=== PATIENT | female | born 1955 | race Two or more races ===

== ENCOUNTER 2017-10-12 09:20 | Emergency (ER) | payer MEDICARE, MEDICAID ==
[~2017-10-12] VITALS: Ht 170.2 cm; Wt 118.4 kg
[~2017-10-12 09:20] MED LIST: ACET100D65 PO; ALLO100T PO; BP MEDS; DIVA500T2 PO; DIVA500T7 PO; DOCU100C36 PO; FAMO10TA94 PO; METO-356 PO; RANI150T8 PO; RISP4TAB4 PO; THIO5CAP2 PO; TOPI25TA PO; TRAM50TA2 PO; VIT1TABL46 PO
[2017-10-12 10:00] LABS: BASOPHILS # (AUTO) 0.1 /CMM (0.0-0.2); BASOPHILS % (AUTO) 0.8 % (0.0-2.0); EOSINOPHILS # (AUTO) 0.2 /CMM (0.0-0.7); EOSINOPHILS % (AUTO) 3.2 % (0.0-6.0); HEMATOCRIT 33 % (33-45); HEMOGLOBIN 11.1 g/dL (11.5-14.8); LYMPHOCYTES # (AUTO) 1.3 /CMM (0.8-4.8); MEAN CORPUSCULAR HEMOGLOBIN 26 PG (26.0-33.0); MEAN CORPUSCULAR HGB CONC 33 g/dl (31.0-36.0); MEAN CORPUSCULAR VOLUME 77 fL (82-100); MONOCYTES # (AUTO) 0.7 /CMM (0.1-1.30); MONOCYTES % (AUTO) 10.7 % (2.0-12.0); NEUTROPHILS # (AUTO) 4.4 /CMM (1.8-8.9); NEUTROPHILS % (AUTO) 66.3 % (43.0-81.0); PLATELET COUNT (AUTO) 293 /CMM (150-450); RDW COEFFICIENT OF VARIATION 14.1 (11.5-15.0); RED BLOOD CELL COUNT(AUTO) 4.32 MIL/uL (4.0-5.2); WHITE BLOOD COUNT (AUTO) 6.6 K/uL (4.3-11.0)
[2017-10-12 10:08] LABS: CALCIUM, SERUM 8.9 mg/dL (8.5-10.1); CARBON DIOXIDE 28 mmol/L (21-32); CHLORIDE 105 mmol/L (98-107); CREATININE 1.2 mg/dL (0.6-1.3); GLUCOSE 102 mg/dL (74-106); POTASSIUM 3.7 mmol/L (3.5-5.1); SODIUM SERUM 139 mmol/L (136-145); UREA NITROGEN, BLOOD 37 mg/dL (7-18)
--- NOTE | 2017-10-12 10:10 | NUR ---
PT BBS WITH C/O ON/OFF SOB FOR 2-3 MONTHS, NO CHEST PAIN. PT WAS SENT BY ANNIKA GOLD FOR FURTHER EVAL. LUNGS CLEAR IN ALL QUADRANTS DURING AUSCULATION. POOJA FLORES MD AT BEDSIDE FOR EVAL.
[2017-10-12 10:16] LABS: TROPONIN I < 0.017 ng/mL (0.00-0.056)
[2017-10-12 10:20] LABS: ALANINE AMINOTRANSFERASE 33 U/L (12-78); ALBUMIN 2.8 g/dL (3.4-5.0); ALKALINE PHOSPHATASE 151 U/L (46-116); ASPARTATE AMINOTRANSFERASE 30 U/L (15-37); B-TYPE NATRIURETIC PEPTIDE 200 PG/ML (0-125); BILIRUBIN,DIRECT 0.1 mg/dL (0.0-0.2); BILIRUBIN,TOTAL 0.3 mg/dL (0.2-1.0); TOTAL PROTEIN, SERUM 7.8 g/dL (6.4-8.2)
--- NOTE | 2017-10-12 11:30 | NUR ---
Patient discharged to home in stable condition. Written and verbal after care instructions given. Patient verbalizes understanding of instruction.
[2017-10-12 11:31] VITALS: BP 139/72
== END 2017-10-12 11:32 | disposition home or self-care (01) ==
LOC: ER 09:26
DX: I13.0 Hypertensive heart and chronic kidney disease with heart failure and stage 1 through stage 4 chronic kidney disease, or unspecified chronic kidney disease (principal); I50.9 Heart failure, unspecified; N18.9 Chronic kidney disease, unspecified; E11.22 Type 2 diabetes mellitus with diabetic chronic kidney disease; Z88.0 Allergy status to penicillin; Z88.6 Allergy status to analgesic agent
CPT/HCPCS: 36415; 71045; 80048; 80076; 83880; 84484; 85025; 93005; 99285; A4606; Z7610

== ENCOUNTER 2018-12-26 13:55 | Inpatient (IN) | payer MEDICARE, MEDICAID ==
[~2018-12-26] VITALS: Ht 162.6 cm; Wt 144.9 kg
[~2018-12-26 13:55] MED LIST changes: +DIVA-78 PO; -DIVA500T7 PO
--- NOTE | 2018-12-26 14:10 | NUR ---
PATIENT ARRIVED TO UNIT BY WHEELCHAIR, ACCOMPANIED BY BROTHER. SENT BY PMD, ANGELA LOWER EXTREMITIES EDEMA, FLUID RETENSION, CHF, DM. DENIES ANY PAIN OR DISCOMFORT.
--- NOTE | 2018-12-26 14:23 | NUR ---
IV STARTED ON RIGHT HAND. BLOOD DRAWN AND SENT TO LAB
[2018-12-26 14:26] LABS: BASOPHILS # (AUTO) 0.1 /CMM (0.0-0.2); EOSINOPHILS % (AUTO) 0.6 % (0.0-6.0); HEMATOCRIT 32 % (33-45); HEMOGLOBIN 10.6 g/dL (11.5-14.8); LYMPHOCYTES # (AUTO) 1.1 /CMM (0.8-4.8); MEAN CORPUSCULAR HGB CONC 34 g/dl (31.0-36.0); MEAN CORPUSCULAR VOLUME 76 fL (82-100); MONOCYTES # (AUTO) 1.1 /CMM (0.1-1.30); NEUTROPHILS # (AUTO) 7.4 /CMM (1.8-8.9); NEUTROPHILS % (AUTO) 76.4 % (43.0-81.0); PLATELET COUNT (AUTO) 222 /CMM (150-450); RED BLOOD CELL COUNT(AUTO) 4.19 MIL/uL (4.0-5.2); WHITE BLOOD COUNT (AUTO) 9.7 K/uL (4.3-11.0)
[2018-12-26] MEDS ORDERED: LURA40TA PO (14:44)
[2018-12-26] MEDS ORDERED: METO25TA6 PO (14:44)
[2018-12-26] MEDS ORDERED: FURO-144 PO (14:44)
[2018-12-26] MEDS ORDERED: POTA10TA11 PO (14:44)
[2018-12-26] MEDS ORDERED: METO5TAB7 PO (14:44)
[2018-12-26] MEDS ORDERED: METF-440 PO (14:44)
[2018-12-26] MEDS ORDERED: COLC0.6T67 PO (14:44)
[2018-12-26 14:45] LABS: ALBUMIN 2.6 g/dL (3.4-5.0); BILIRUBIN,DIRECT 0.5 mg/dL (0.0-0.2); CALCIUM, SERUM 8.9 mg/dL (8.5-10.1); CREATININE 2.8 mg/dL (0.6-1.3)
[2018-12-26 14:47] LABS: POTASSIUM 2.7 mmol/L (3.5-5.1)
--- NOTE | 2018-12-26 16:25 | NUR ---
Note andresone in ED - 12/26/18 at 1835 by LISA PATIENT TRANSFERRED TO [facility] BY TENISHA VIA [facility] PROTOCOL. RECEIVING NURSE AT BEDSIDE. PATIENT CALM AND RELAXED. NO ACUTE DISTRESS NOTED.
--- NOTE | 2018-12-26 16:36 | NUR ---
Maegan frausto in [facility] - 12/26/18 at 1703 by LORIN BED [id number]
--- NOTE | 2018-12-26 17:40 | NUR ---
REPORT GIVEN TO IFEANYI LU FOR FLORENTINO
[2018-12-26] MEDS ORDERED: DEXTROSE 50%-WATER 50 ML DISP.SYRIN IV PRN (18:00)
[2018-12-26] MEDS ORDERED: POTASSIUM CHLORIDE 20 MEQ TAB.PRT.SR PO ONE ×2 (18:00→18:29)
--- NOTE | 2018-12-26 18:25 | NUR ---
PATIENT TRANSFERRED TO [facility] BY MADELIN VIA [facility] PROTOCOL. RECEIVING NURSE AT BEDSIDE. PATIENT CALM AND RELAXED. NO ACUTE DISTRESS NOTED
[2018-12-26] MEDS ORDERED: METFORMIN 500 MG TABLET PO SCH (18:30)
[2018-12-26] MEDS ORDERED: FUROSEMIDE 40 MG TABLET PO SCH (18:30)
[2018-12-26] MEDS: POTASSIUM CHLORIDE 10 MEQ TABLET.SA PO SCH (18:52)
[2018-12-26] MEDS: METOPROLOL TARTRATE 25 MG TABLET PO SCH (18:52)
[2018-12-26] MEDS: COLCHICINE 0.6 MG TABLET PO SCH (18:52)
--- NOTE | 2018-12-26 19:15 | NUR ---
TELE/RN NOTES RECEIVED PT IN BED FOR ADMISSION. A/OX4, ON ROOM AIR, NO SOB NOTED. SR ON TELE. NO C/O PAIN AT THIS TIME. VS TAKEN AND PHYSICAL ASSESSMENT DONE. BED BATH GIVEN. WITH INTACT AND PATENT RHAND G20 HEPLOCK, IVF D5NS +40MEQS KCL STARTED PER ORDER. ORIENTED TO ROOM AND USE OF CALL LIGHT. SAFETY MEASURES IN PLACED. CALL LIGHT WITHIN EASY REACH. WILL CONT TO MONITOR
--- NOTE | 2018-12-26 19:15 | NUR ---
RN NOTES RECEIVED REPORT FROM ER NURSE. PT WAS BROUGHT TO UNIT AT 1830. PT WAS MADE COMFORTABLE AND FOOD WAS BROUGHT TO PT. ENDORSED CONTINUITY OF CARE TO SUPERVISOR NUCLEAR MEDICINE RN.
[2018-12-26 20:00] VITALS: BP 139/60
[2018-12-26] MEDS: Potassium Chloride 40 MEQ in IV D5/ 0.9% NACL 1,000 ML IV PRN (20:10)
[2018-12-26] MEDS: BLOOD SUGAR DIAGNOSTIC 1 EACH STRIP IN SCH (21:21)
[2018-12-26] MEDS: INSULIN REGULAR, HUMAN 100 UNIT/ML 3 ML VIAL SQ PRN (21:22)
[2018-12-27] VITALS: BP 134/46
[2018-12-27 04:00] VITALS: BP 110/49
[2018-12-27 06:53] LABS: BASOPHILS # (AUTO) 0.1 /CMM (0.0-0.2); BASOPHILS % (AUTO) 1.3 % (0.0-2.0); HEMATOCRIT 31 % (33-45); HEMOGLOBIN 10.2 g/dL (11.5-14.8); LYMPHOCYTES # (AUTO) 1.8 /CMM (0.8-4.8); LYMPHOCYTES % (AUTO) 20.1 % (20.0-44.0); MEAN CORPUSCULAR HGB CONC 33 g/dl (31.0-36.0); MEAN CORPUSCULAR VOLUME 76 fL (82-100); MONOCYTES # (AUTO) 1.3 /CMM (0.1-1.30); MONOCYTES % (AUTO) 14.5 % (2.0-12.0); NEUTROPHILS # (AUTO) 5.3 /CMM (1.8-8.9); NEUTROPHILS % (AUTO) 60.1 % (43.0-81.0); PLATELET COUNT (AUTO) 178 /CMM (150-450); RED BLOOD CELL COUNT(AUTO) 4.09 MIL/uL (4.0-5.2); WHITE BLOOD COUNT (AUTO) 8.8 K/uL (4.3-11.0)
--- NOTE | 2018-12-27 06:55 | NUR ---
RN NOTES PT IN STABLE CONDITION. NO ACUTE CHANGES THROUGHOUT THE SHIFT. ALL NEEDS ANTICIPATED. SAFETY MEASURES OBSERVED AT ALL TIMES. ENDORSED TO AM SHIFT RN FOR FLORENTINO
[2018-12-27 06:57] LABS: POTASSIUM 2.9 mmol/L (3.5-5.1)
[2018-12-27 06:58] LABS: CALCIUM, SERUM 8.9 mg/dL (8.5-10.1); CREATININE 2.2 mg/dL (0.6-1.3)
[2018-12-27 08:00] VITALS: BP 112/41
[2018-12-27] MEDS: BLOOD SUGAR DIAGNOSTIC 1 EACH STRIP IN SCH ×4 (08:26→21:22)
[2018-12-27] MEDS: INSULIN REGULAR, HUMAN 100 UNIT/ML 3 ML VIAL SQ PRN ×2 (08:33→21:22)
[2018-12-27] MEDS: METOPROLOL TARTRATE 25 MG TABLET PO SCH ×2 (08:36→16:58)
[2018-12-27] MEDS: Potassium Chloride 40 MEQ in IV D5/ 0.9% NACL 1,000 ML IV PRN (08:36)
[2018-12-27] MEDS: POTASSIUM CHLORIDE 10 MEQ TABLET.SA PO SCH (08:36)
[2018-12-27] MEDS: COLCHICINE 0.6 MG TABLET PO SCH ×3 (08:37→16:59)
[2018-12-27] MEDS ORDERED: METOLAZONE 2.5 MG TABLET PO SCH (09:00)
--- NOTE | 2018-12-27 09:13 | NUR ---
WOUND CARE CONSULT: PT PRESENTS WITH MULTIPLE SKIN ISSUES INCLUDING RASH TO ABDOMINAL/GROIN FOLDS AND PERINEAL, GLUTEAL CREASE AREAS, INCONTINENCE ASSOCIATED SKIN IRRITATION TO LEFT POSTERIOR THIGH AND FLUCTUANT WOUND TO LEFT HEEL WITH REDNESS TO BILATERAL LOWER EXTREMITIES AND THICK CALLUSES TO FEET, ALL PRESENT ON ADMISSION. RECOMMENDATIONS MADE FOR SKIN PROTECTION AND CARE. DISCUSSED WITH NURSING STAFF. RECOMMEND DPM CONSULT. RECOMMEND ISOFLEX LOW AIRLOSS BED. WILL SEE PRN. DEFER TO DPM FOR LOWER EXTREMITIES. MD IN AGREEMENT WITH PLAN OF CARE. Addendum: 12/27/18 at 0916 by LORI MOYER WNDNU Amended: Links added.
[2018-12-27] MEDS ORDERED: Z GUARD REMEDY 2 OZ OINT TP PRN (09:30)
[2018-12-27] MEDS: Z GUARD REMEDY 2 OZ OINT TP SCH (09:38)
[2018-12-27 11:59] LABS: THYROID STIMULATING HORMONE 0.665 uIU/mL (0.358-3.74)
[2018-12-27 12:00] VITALS: BP 118/48
[2018-12-27 12:09] LABS: MAGNESIUM 1.9 mg/dL (1.8-2.4); PHOSPHORUS 3.4 mg/dL (2.5-4.9)
[2018-12-27] MEDS: CLOTRIMAZOLE 1% 15 GM TUBE TP SCH ×2 (12:58→16:59)
[2018-12-27 16:00] VITALS: BP 112/60
--- NOTE | 2018-12-27 19:30 | NUR ---
RN NOTES RECEIVED PATIENT IN BED AWAKE A/OX4, ON ROOM AIR, BREATHING EVEN AND UNLABORED, NO SOB/ACUTE DISTRESS NOTED AT THIS TIME, RIGHT HAND IV ACCESS G20 INFUSING IVF D5NS +40MEQS KCL AT THIS TIME, AND PATIENT TOLERATED WELL, CALL LIGHT W/I REACH, SAFETY MEASURES IN PLACED AT ALL TIMES, WILL CONT TO MONITOR CLOSELY. Addendum: 12/28/18 at 0640 by SPENCER CASTREJON RN PATIENT WITH RIGHT HAND IV ACCESS PATENT AND INTACT S/L, NO IVF AT THIS TIME.
[2018-12-27 20:00] VITALS: BP 122/64
[2018-12-27] MEDS: CIPROFLOXACIN HCL 250 MG TABLET PO SCH (20:52)
[2018-12-27] MEDS: DOXYCYCLINE HYCLATE (100 MG) 100 MG TABLET PO SCH (20:52)
[2018-12-27] MEDS: ARIPIPRAZOLE 5 MG TABLET PO SCH (22:07)
[2018-12-28 04:00] VITALS: BP 120/78
--- NOTE | 2018-12-28 06:35 | NUR ---
RN NOTES PATIENT IN BED AWAKE AT THIS TIME WATCHING TV, ON ROOM AIR, BREATHING EVEN AND UNLABORED, NO SOB/ACUTE DISTRESS NOTED AT THIS TIME, RIGHT HAND IV ACCESS S/L PATENT AND INTACT, NO SIGNIFICANT CHANGE IN CONDITION DURING THE NIGHT, CALL LIGHT W/I REACH, SAFETY MEASURES IN PLACED AT ALL TIMES, WILL ENDORSE CONTINUITY OF CARE TO ONCOMING NURSE.
[2018-12-28 07:11] LABS: ALBUMIN 2.3 g/dL (3.4-5.0); BILIRUBIN,TOTAL 1.2 mg/dL (0.2-1.0); CALCIUM, SERUM 9.1 mg/dL (8.5-10.1); CREATININE 1.8 mg/dL (0.6-1.3); MAGNESIUM 1.8 mg/dL (1.8-2.4); PHOSPHORUS 2.8 mg/dL (2.5-4.9); POTASSIUM 3.5 mmol/L (3.5-5.1); TOTAL PROTEIN, SERUM 7.5 g/dL (6.4-8.2)
[2018-12-28 07:21] LABS: BASOPHILS # (AUTO) 0.1 /CMM (0.0-0.2); BASOPHILS % (AUTO) 0.8 % (0.0-2.0); EOSINOPHILS % (AUTO) 6.1 % (0.0-6.0); HEMATOCRIT 33 % (33-45); HEMOGLOBIN 10.8 g/dL (11.5-14.8); LYMPHOCYTES # (AUTO) 1.3 /CMM (0.8-4.8); MEAN CORPUSCULAR HGB CONC 33 g/dl (31.0-36.0); MEAN CORPUSCULAR VOLUME 77 fL (82-100); MONOCYTES # (AUTO) 1.4 /CMM (0.1-1.30); MONOCYTES % (AUTO) 16.2 % (2.0-12.0); NEUTROPHILS # (AUTO) 5.3 /CMM (1.8-8.9); NEUTROPHILS % (AUTO) 61.9 % (43.0-81.0); PLATELET COUNT (AUTO) 169 /CMM (150-450); RED BLOOD CELL COUNT(AUTO) 4.27 MIL/uL (4.0-5.2); WHITE BLOOD COUNT (AUTO) 8.6 K/uL (4.3-11.0)
[2018-12-28] MEDS: BLOOD SUGAR DIAGNOSTIC 1 EACH STRIP IN SCH ×4 (07:30→21:31)
--- NOTE | 2018-12-28 07:35 | NUR ---
MS RN RECEIVED ON BED, AWAKE,ALERT,ORIENTED X4,NOT IN ANY FORM OF DISTRESS, RESPIRATIONS EVEN AND UNLABORED,NO SOB NOTED, LUNGS ARE DIMINISHED,ABDOMEN SOFT,POSITIVE BOWEL SOUNDS,DENIES PAIN AT THIS TIME, WILL MONITOR PATIENT'S CONDITION.
[2018-12-28 08:00] VITALS: BP 130/48
[2018-12-28 08:13] LABS: ABG BASE EXCESS 6.3 mmol/L; ABG PCO2 38.2 mmHg (35.0-45.0); ABG PH 7.508 (7.350-7.450); ABG PO2 70.5 mmHg (75.0-100.0); AaDO2 33.5 mmHg; MetHb 0.6 % (0.0-1.5); O2Hb 93.5 % (94.0-97.0); SITE, ABG Right Radial; VENT MODE, BG ROOM AIR
[2018-12-28] MEDS: CLOTRIMAZOLE 1% 15 GM TUBE TP SCH ×4 (09:00→18:29)
[2018-12-28] MEDS: Z GUARD REMEDY 2 OZ OINT TP SCH (09:00)
[2018-12-28] MEDS: UREA 10% -AHA 4% CREAM 57 GM TUBE TP SCH (09:00)
[2018-12-28] MEDS ORDERED: LATUDA 20 MG PO SCH (09:00)
[2018-12-28] MEDS: DAKINS QUARTER STRENGTH (0.125%) 480 ML BOTTLE TOP SCH (09:00)
--- NOTE | 2018-12-28 09:00 | NUR ---
MS LU BREAKFAST SERVED,DUE MEDS GIVEN,TOLERATED WELL.
[2018-12-28] MEDS: COLCHICINE 0.6 MG TABLET PO SCH ×3 (09:10→18:28)
[2018-12-28] MEDS: CIPROFLOXACIN HCL 250 MG TABLET PO SCH ×2 (09:10→21:31)
[2018-12-28] MEDS: DOXYCYCLINE HYCLATE (100 MG) 100 MG TABLET PO SCH ×2 (09:10→21:31)
[2018-12-28] MEDS: POTASSIUM CHLORIDE 10 MEQ TABLET.SA PO SCH (09:10)
[2018-12-28] MEDS: METOPROLOL TARTRATE 25 MG TABLET PO SCH ×2 (09:11→17:00)
[2018-12-28] MEDS: CADEXOMER IODINE 40 GM TUBE TP SCH (09:12)
[2018-12-28 12:00] VITALS: BP 130/58
--- NOTE | 2018-12-28 12:00 | NUR ---
ms rn eating lunch,no distress noted.
[2018-12-28] MEDS: INSULIN REGULAR, HUMAN 100 UNIT/ML 3 ML VIAL SQ PRN (12:53)
[2018-12-28 18:00] VITALS: BP_SYST 122; BP_SYST 130; BP_DIAS 47; BP_DIAS 74
[2018-12-28] MEDS: LACTOBACILLUS RHAMNOSUS GG 1 EACH CAP.SPRINK PO SCH (18:28)
--- NOTE | 2018-12-28 18:43 | NUR ---
ms rn on bed, , bs - 101 - no coverage given,all needs attended.
[2018-12-28 20:00] VITALS: BP 136/57
[2018-12-28] MEDS: ARIPIPRAZOLE 5 MG TABLET PO SCH (21:31)
[2018-12-29 04:00] VITALS: BP 134/58
--- NOTE | 2018-12-29 06:51 | NUR ---
MS RN NOTES AWAKE & RESPONSIVE. NOT IN ANY DISTRESS. NO SOB NOTED. DENIES ANY PAIN OR DISCOMFORT AT THIS TIME. WITH IV-HL PATENT & INTACT. MONITORED ACCORDINGLY. CALL LIGHT WITHIN REACH. BED IN LOWEST POSITION.. SR UP X 2 FOR SAFETY. WILL ENDORSE TO NEXT SHIFT.
--- NOTE | 2018-12-29 07:25 | NUR ---
MS RN NOTES PATIENT IN BED ALERT ORIENTED X 4. NO ACUTE DISTRESS NOTED. BREATHING UNLABORED. NO SOB NOTED. IV ACCESS PATENT AND INTACT, NO REDNESS OR SWELLING NOTED. SAFETY MEASURES IN PLACE. CALL LIGHT WITHIN REACH. WILL CONTINUE TO MONITOR ACCORDINGLY.
[2018-12-29 07:36] LABS: BASOPHILS # (AUTO) 0.1 /CMM (0.0-0.2); EOSINOPHILS % (AUTO) 7.6 % (0.0-6.0); HEMATOCRIT 34 % (33-45); HEMOGLOBIN 10.8 g/dL (11.5-14.8); LYMPHOCYTES # (AUTO) 1.6 /CMM (0.8-4.8); LYMPHOCYTES % (AUTO) 18.4 % (20.0-44.0); MEAN CORPUSCULAR HGB CONC 32 g/dl (31.0-36.0); MEAN CORPUSCULAR VOLUME 78 fL (82-100); MONOCYTES # (AUTO) 1.4 /CMM (0.1-1.30); MONOCYTES % (AUTO) 15.7 % (2.0-12.0); NEUTROPHILS % (AUTO) 57.3 % (43.0-81.0); PLATELET COUNT (AUTO) 140 /CMM (150-450); RED BLOOD CELL COUNT(AUTO) 4.33 MIL/uL (4.0-5.2); WHITE BLOOD COUNT (AUTO) 8.8 K/uL (4.3-11.0)
[2018-12-29 07:47] LABS: ALBUMIN 2.3 g/dL (3.4-5.0); BILIRUBIN,DIRECT 0.3 mg/dL (0.0-0.2); BILIRUBIN,TOTAL 1.1 mg/dL (0.2-1.0); TOTAL PROTEIN, SERUM 7.6 g/dL (6.4-8.2)
[2018-12-29 07:49] LABS: CALCIUM, SERUM 9.2 mg/dL (8.5-10.1); CREATININE 1.5 mg/dL (0.6-1.3); MAGNESIUM 1.8 mg/dL (1.8-2.4); POTASSIUM 3.6 mmol/L (3.5-5.1)
[2018-12-29 08:00] VITALS: BP 122/51
[2018-12-29] MEDS: BLOOD SUGAR DIAGNOSTIC 1 EACH STRIP IN SCH ×2 (08:54→12:41)
[2018-12-29] MEDS: LACTOBACILLUS RHAMNOSUS GG 1 EACH CAP.SPRINK PO SCH ×2 (09:18→16:49)
[2018-12-29] MEDS: DOXYCYCLINE HYCLATE (100 MG) 100 MG TABLET PO SCH (09:19)
[2018-12-29] MEDS: POTASSIUM CHLORIDE 10 MEQ TABLET.SA PO SCH (09:19)
[2018-12-29] MEDS: CIPROFLOXACIN HCL 250 MG TABLET PO SCH (09:19)
[2018-12-29] MEDS: COLCHICINE 0.6 MG TABLET PO SCH ×3 (09:19→16:49)
[2018-12-29] MEDS: UREA 10% -AHA 4% CREAM 57 GM TUBE TP SCH (09:20)
[2018-12-29] MEDS: METOPROLOL TARTRATE 25 MG TABLET PO SCH ×2 (09:20→16:50)
[2018-12-29] MEDS: DAKINS QUARTER STRENGTH (0.125%) 480 ML BOTTLE TOP SCH (09:20)
[2018-12-29] MEDS: CADEXOMER IODINE 40 GM TUBE TP SCH (09:21)
[2018-12-29] MEDS: CLOTRIMAZOLE 1% 15 GM TUBE TP SCH ×4 (09:21→16:52)
[2018-12-29] MEDS: Z GUARD REMEDY 2 OZ OINT TP SCH (09:22)
[2018-12-29] MEDS ORDERED: ALLA266C2 TP (11:01)
[2018-12-29] MEDS ORDERED: CLOT15CR35 TP (11:01)
[2018-12-29] MEDS ORDERED: DOXY100T2 PO (11:01)
[2018-12-29] MEDS ORDERED: CIPR250T4 PO (11:01)
[2018-12-29 12:00] VITALS: BP 126/56
[2018-12-29] MEDS: INSULIN REGULAR, HUMAN 100 UNIT/ML 3 ML VIAL SQ PRN (12:44)
[2018-12-29 16:50] VITALS: BP 128/55
--- NOTE | 2018-12-29 17:05 | NUR ---
MS RN NOTES PATIENT DISCHARGE HOME WITH STABLE VITAL SIGNS, NO ACUTE DISTRESS NOTED. BREATHING UNLABORED. NO SOB NOTED. DISCHARGE INSTRUCTIONS GIVEN TO THE PATIENT INCLUDING HOME HEALTH, WOUND CARE, FOLLOW APPOINTMENT WITH DR LEI AND NEW PRESCRIPTIONS, VERBALIZED UNDERSTANDING. ALL BELONGINGS ACCOUNTED FOR. WOUND CARE DONE ORDERED WITH DRESSING CLEAN DRY AND INTACT. IV ACCESS REMOVED, NO BLEEDING ,NO REDNESS, NO SWELLING NOTED. WHEELED TO THE LOBBY ASSISTED TO A PRIVATE CAR PICKED UP BY [employer] IN STABLE CONDITION.
== END 2018-12-29 17:05 | disposition home health service (06) | DRG 682 ==
LOC: ER 14:03 → TELE1 17:02 → MEDSG1 12-27 09:04
PROVIDERS: ADMIT Internal Medicine; ATTEND Internal Medicine
PROC: 0HBRXZZ Excision of Toe Nail, External Approach (ICD-10-PCS; principal; 2018-12-27)
DX: N17.9 Acute kidney failure, unspecified (principal); J96.90 Respiratory failure, unspecified, unspecified whether with hypoxia or hypercapnia; I13.0 Hypertensive heart and chronic kidney disease with heart failure and stage 1 through stage 4 chronic kidney disease, or unspecified chronic kidney disease; Z68.43 Body mass index [BMI] 50.0-59.9, adult; I50.32 Chronic diastolic (congestive) heart failure; E44.0 Moderate protein-calorie malnutrition; E87.3 Alkalosis; F20.0 Paranoid schizophrenia; L97.409 Non-pressure chronic ulcer of unspecified heel and midfoot with unspecified severity; I50.9 Heart failure, unspecified; E11.22 Type 2 diabetes mellitus with diabetic chronic kidney disease; N18.9 Chronic kidney disease, unspecified; E11.621 Type 2 diabetes mellitus with foot ulcer; B35.3 Tinea pedis; E66.01 Morbid (severe) obesity due to excess calories; B35.1 Tinea unguium; E11.42 Type 2 diabetes mellitus with diabetic polyneuropathy; E87.6 Hypokalemia; K76.0 Fatty (change of) liver, not elsewhere classified; K80.20 Calculus of gallbladder without cholecystitis without obstruction; D50.9 Iron deficiency anemia, unspecified; Z79.899 Other long term (current) drug therapy; R60.1 Generalized edema
CPT/HCPCS: 36415; 36600; 71045-TC; 73630-TC; 73721-TC; 76700-TC; 80048-TC; 80053-TC; 80061-TC; 80076-TC; 82728-TC; 82962-TC; 83540-TC; 83735-TC; 83880; 84100-TC; 84439-TC; 84443-TC; 84484-TC; 85025-TC; 85730-TC; 86803; 87070-TC; 87081-TC; 87340; 93307-TC; A6253; A6402; G0378; J1815; J3480; J7042